=== PATIENT | male | born 1985 | race Caucasian/White ===

== ENCOUNTER 2020-12-21 03:28 | Outpatient (CLI) | payer MEDICAID, SELFPAY ==
[2020-12-21 11:44] LABS: Absolute Basophil Count 0.03 10^3/uL (0.0-0.2); Absolute Eosinophil Count 0.16 10^3/uL (0.0-0.7); Absolute Lymphocyte Count 2.85 10^3/uL (1.2-3.4); Absolute Monocyte Count 0.49 10^3/uL (0.1-0.8); Absolute Neutrophil Count 2.54 10^3/uL (1.2-6.7); Basophils % 0.5; Eosinophils % 2.6; HCT 45.8 % (40.0-50.0); HGB 15.9 g/dL (13.5-17.5); MCH 29.2 pg (27.0-33.0); MCHC 34.7 % (32.0-36.0); MCV 84.2 fL (80-95); MPV 11.5 fL (8.0-11.0); Monocytes % 8.1; Neutrophils % 41.8; Nucleated RBC 0 %; Platelet Count 228 10^3/uL (130-400); RBC 5.44 10^6/uL (4.36-5.78); RDW 12.7 % (11.8-14.1); RDW-SD 39.1 fL; WBC 6.07 10^3/uL (4.4-10.8)
[2020-12-21 12:08] LABS: Hemoglobin A1C 4.6 % (<5.7)
[2020-12-21 13:17] LABS: ALT 37 U/L (16-63); AST 16 U/L (15-37); Albumin 4.7 g/dL (3.4-5.0); Alkaline Phosphatase 90 U/L (46-116); Anion Gap 10.7 mmol/L (3-11); BUN 12 mg/dL (7-18); Bilirubin, Total 0.6 mg/dL (0.2-1.0); CO2 26.3 mmol/L (21.0-32.0); Calcium 9.6 mg/dL (8.5-10.1); Calculated LDL 52 mg/dL (<100); Chloride 104 mmol/L (98-107); Cholesterol 122 mg/dL (<200); Glucose 87 mg/dL (74-106); HDL Cholesterol 36 mg/dL (40-60); Potassium 4.2 mmol/L (3.5-5.1); Sodium 141 mmol/L (136-145); T4 9.4 ug/mL (4.7-13.3); TSH 1.03 uIU/mL (0.36-3.74); Total Protein 7.9 g/dL (6.4-8.2); Triglyceride 170 mg/dL (<150); Vitamin B12 833 pg/mL (193-986)
[2020-12-21 17:18] LABS: T3,Free 3.5 pg/mL (2.8-5.3)
[2020-12-24 04:50] LABS: Vitamin D 25 Total 66.4 ng/mL (30-100)
== END 2020-12-21 03:29 | disposition home or self-care (01) ==
LOC: LBO 03:28
PROVIDERS: PCP Family Medicine; Visit Provider Family Medicine
DX: R53.83 Other fatigue (principal); E55.9 Vitamin D deficiency, unspecified; E53.8 Deficiency of other specified B group vitamins; Z13.220 Encounter for screening for lipoid disorders; Z13.1 Encounter for screening for diabetes mellitus
CPT/HCPCS: 36415; 80053; 80061; 82306; 82607; 83036; 84436; 84443; 84481; 85025

== ENCOUNTER 2020-12-26 15:23 | Emergency (ER) | payer MEDICAID, SELFPAY ==
[2020-12-26 15:58] VITALS: BP 140/80; PULSE 65; RESP 16; TEMP 36.2; O2SAT 99
--- NOTE | 2020-12-26 16:15 | DI.RAD_ITS ---
Exam(s) XR FINGER LT INDEX EXAM: XR FINGER LT INDEX CLINICAL HISTORY: lac, infection, ?fb. TECHNIQUE: 2D digital imaging was performed. COMPARISON: No exams were available for comparison FINDINGS: There is no evidence of fracture or dislocation. No radiopaque foreign body in the indicated area in the 2nd-index finger. No osseous lesions. Bone density normal. IMPRESSION: DATA REPOSITORY: RADIATION DOSE DELIVERED:
--- NOTE | 2020-12-26 16:20 | ED.GENADUL_ITS ---
Discharge Plan Disposition Patient Disposition: HOME Condition: Stable Discharge Details Clinical Impression: Wound infection Primary Care Provider: Cinthia Mtz ED Provider: Kaleb Messer Home Meds and New Rx's Prescriptions: New sulfamethoxazole-trimethoprim [Bactrim DS] 800-160 mg tablet 1 tab PO BID Qty: 20 RF: 0 Continued loratadine [Claritin] 10 mg Tablet 10 mg PO DAILY RF: 0 Discharge Instructions Instructions: Wound Infection (ED) Additional Instructions: Tetanus status has been updated and x-ray is unremarkable. The wound is outside the window for closure. Antibiotic dressing and splint applied. First dose of Bactrim given, take for the next 10 days as directed. Change dressing daily and wear splint to avoid tearing open the laceration. Rest, elevate, warm compresses every 2 hours for 20 minutes. [id number] Tylenol and/or Motrin as directed for discomfort. I recommend following up with your primary care provider in the next 3-5 days for wound reevaluation. Please watch for new or worsening symptoms and return to the ER for any concerns. Medical Decision Making 35-year-old gentleman presents with infected laceration which occurred 2 days ago. Will update tetanus, obtain x-ray to rule out bony abnormality or potential foreign body. Patient is afebrile, no evidence of tenosynovitis, septic joint, lymphangitic streaking. Patient appears well, nontoxic. X-ray is unremarkable for foreign body or bony abnormality. Patient is outside the window for closure of the laceration. Will properly clean, dressed with antibiotic dressing, and apply a finger splint. First dose of Bactrim be given now. Patient given strict discharge and return precautions. Patient has no additional questions or concerns This documentation was generated using [employer] system, please disregard any oddities of phrase or misspellings. Imaging Data Radiologic Study: Attestation: I personally reviewed and interpreted this imaging study as follows: Imaging: X-Ray Radiologist's impression: Exam(s) XR FINGER LT INDEX EXAM: XR FINGER LT INDEX CLINICAL HISTORY: lac, infection, ?fb. TECHNIQUE: 2D digital imaging was performed. COMPARISON: No exams were available for comparison FINDINGS: There is no evidence of fracture or dislocation. No radiopaque foreign body in the indicated area in the 2nd-index finger. No osseous lesions. Bone density normal. HPI General Mode of arrival: ambulatory . Date/Time Provider Initiated Documentation: 12/26/20 15:24 . Limitations to Documentation: no limitations . Information obtained by: patient . HPI Narrative: This is a 35-year-old gentleman, [id number], who denies any significant past medical history presenting for infected laceration to his left index finger. Patient states 2 days ago he sustained an injury with a grinding machine. Initially cleaned it thoroughly but now notices some swelling, redness, pressure, mild discomfort. He is able to bend his finger but with full flexion it feels tight because of the swelling. Distally he reports slightly altered sensation but no true numbness, tingling or weakness. Tetanus status is not up-to-date. He has not taken any medication [id number] for symptomatic control. Reports the pain is mild at rest worse with movement. No other injury. Related Data Home Medications Medication Instructions Recorded Confirmed loratadine [Claritin] 10 mg PO DAILY 12/26/20 12/26/20 sulfamethoxazole-trimethoprim 1 tab PO BID #20 tab 12/26/20 [Bactrim DS] Previous Rx's Medication Instructions Recorded sulfamethoxazole-trimethoprim 1 tab PO BID #20 tab 12/26/20 [Bactrim DS] Allergies Allergy/AdvReac Type Severity Reaction Status Date / Time No Known Allergies Allergy Unverified 12/26/20 16:02 General Stated Complaint: Laceration FEDE: 3 Review of Systems Constitutional Constitutional: Denies fever(s) and Denies weakness Musculoskeletal Musculoskeletal: Denies arthralgias, Denies numbness, Reports stiffness and Denies tingling Integumentary/Breasts Skin/Breast: Reports erythema Neurologic Neurologic: Denies numbness, Denies tingling and Denies weakness [facility] Social History Smoking risk assessment performed?: No Alcohol Intake: never Do you feel safe at home: Yes Do you feel safe in your relationship?: Yes Exam Const General: cooperative, healthy appearing, comfortable and no acute distress Orientation: alert and awake [facility] Head: normal to inspection, normocephalic and atraumatic Eyes Conjunctivae: conjunctivae normal Neck Neck: normal visual inspection, trachea midline and supple Resp Effort & Inspection: normal respiratory effort and able to speak in complete sentences Cardio Rate: regular rate Rhythm: regular rhythm Skin General skin exam: erythema Neuro General: patient alert, patient awake, moves all extremities and no focal motor deficits Cognition: normal cognition Speech: speech normal Motor: muscle tone normal throughout Sensory Exam: no sensory deficits noted Extrem Hand/finger images: 1. There is a 1 cm partially healing laceration without any drainage. There is localized swelling, tenderness, erythema that does extend proximally to around the second MCP joint. This is noncircumferential. Neuro, vascular, tendon intact. Full range of motion. Normal radial pulse and capillary refill. No evidence of septic joint or tenosynovitis Psych Appearance: grossly normal Mental Status: mental status grossly normal Course Vital Signs Vital signs: Vital Signs Temperature 36.2 C L 12/26/20 15:58 Pulse 65 12/26/20 15:58 Respiratory Rate 16 12/26/20 15:58 Blood Pressure 140/80 12/26/20 15:58 Pulse Oximetry 99 12/26/20 15:58 Temperature 36.2 C L 12/26/20 15:58 Temperature Source Tympanic 12/26/20 15:58 Pulse 65 12/26/20 15:58 Respiratory Rate 16 12/26/20 15:58 Respiratory Effort Non-Labored 12/26/20 16:01 Blood Pressure 140/80 12/26/20 15:58 Blood Pressure Position Sitting 12/26/20 15:58 Pulse Oximetry 99 12/26/20 15:58 Oxygen Delivery Method Room Air 12/26/20 15:58 Oxygen Flow Rate 0 12/26/20 15:58 Pain Level 0 12/26/20 15:58
[2020-12-26] MEDS: Sulfameth/Trimeth DS TAB 1 TAB PO (17:15)
--- NOTE | 2020-12-26 17:18 | NUR.NOTE ---
1715 LACERATION CLEANED & BACITRACIN APPLIED, TDAP & ORAL ABX GIVEN DOCUMENTED. SPLINT APPLIED, +CSMT TO FINGER AFTER SPLINT APPLICATION
--- NOTE | 2020-12-26 17:40 | DI.VRAD_ITS ---
PROCEDURE INFORMATION: Exam: XR Left Finger(s) Exam date and time: 12/26/2020 4:21 PM Age: 35 years old Clinical indication: Pain; Finger(s); Left; Patient HX: Lac, infection TECHNIQUE: Imaging protocol: XR Left fingers. Views: Minimum 2 views. COMPARISON: No relevant prior studies available. FINDINGS: Bones/joints: Normal. Soft tissues: Soft tissue trauma noted. No radiopaque foreign bodies. IMPRESSION: No acute osseous injury Dictated and Authenticated by: Jaswinder Hammonds MD. Ordering:MALLY Manuel MD
== END 2020-12-26 17:32 | disposition home or self-care (01) ==
PROVIDERS: Emergency Provider Physician Assistant; PCP Family Medicine
DX: S61.213A Laceration without foreign body of left middle finger without damage to nail, initial encounter (principal); L08.9 Local infection of the skin and subcutaneous tissue, unspecified; W31.89XA Contact with other specified machinery, initial encounter
CPT/HCPCS: 29130; 90471; 99284; 73140; 99283

== ENCOUNTER 2023-08-14 17:40 | Emergency (ER) | payer OTHER, SELFPAY ==
[2023-08-14 17:46] VITALS: BP 157/85; PULSE 87; RESP 18; TEMP 36.5; O2SAT 97
--- NOTE | 2023-08-14 18:00 | DI.RAD_ITS ---
Exam(s) XR KNEE RT 3V AP,LAT,CEZAR EXAM: XR KNEE RT 3V AP,LAT,CEZAR CLINICAL HISTORY: axe injury to lateral knee. TECHNIQUE: 2D digital imaging was performed. COMPARISON: No exams were available for comparison FINDINGS: No evidence of fracture prominent joint effusion. Bone density normal. No radiopaque foreign body. No degenerative changes in the knee joint. Incidentally noted is a benign-appearing lung to truly orientated bubbly lesion which is nonexpansile in the distal medial diaphysis of the femur. This is probably remnant of fibrous cortical defect-no nossifying fibroma. IMPRESSION: No acute osseous findings. Incidental benign bone lesion in distal femur as above. DATA REPOSITORY: RADIATION DOSE DELIVERED:
[2023-08-14] MEDS: Lidocaine 1% Multi-Dose W/EPI 1/100,000 50 ML VIAL (18:12)
--- NOTE | 2023-08-14 18:39 | ED.GENADUL_ITS ---
Discharge Plan Disposition Patient Disposition: Home Condition: Stable Discharge Details Clinical Impression: Laceration of leg Primary Care Provider: Cinthia Mtz ED Provider: Megha Hidalgo Home Meds and New Rx's Prescriptions: Continued loratadine [Claritin] 10 mg Tablet 10 mg PO DAILY Discharge Instructions Instructions: Laceration (ED) Additional Instructions: Keep wound clean and dry try not to kneel or bend for the next several days keep covered when wearing pants or outside allow to air dry as much as possible return with spreading redness, fever, worsening pain suture removal in 10-12 days Referrals: Cinthia Mtz [Primary Care Provider] - Discharge Data Discharge Date/Time-TO BE ENTERED AT DEPARTURE: 08/14/23 18:50 HPI General Date/Time Provider Initiated Documentation: 08/14/23 17:55 . HPI Narrative: This 38-year-old male presents with laceration to right lateral knee. Patient states that he was using an ax to chop somewhat and accidentally brace his knee. He was able to ambulate after the event. Denies any history of coagulopathy. Tetanus reportedly up-to-date. Related Data Home Medications Medication Instructions Recorded Confirmed loratadine 10 mg tablet (Claritin) 10 mg PO DAILY 12/26/20 08/14/23 Allergies Allergy/AdvReac Type Severity Reaction Status Date / Time No Known Allergies Allergy Unverified 12/26/20 16:02 General Stated Complaint: Laceration FEDE: 3 Exam Narrative Exam Narrative: Patient with laceration to right lateral knee, approximately an inch long, no evidence of involvement of the capsule, relatively superficial without extension past the adipose tissue on probing, range of motion is intact, neurovascularly intact, no tenderness to calf or femur Course Vital Signs Vital signs: Vital Signs Temperature 36.5 C 08/14/23 17:46 Pulse 87 08/14/23 17:46 Respiratory Rate 18 08/14/23 17:46 Blood Pressure 157/85 H 08/14/23 17:46 Pulse Oximetry 97 08/14/23 17:46 Temperature 36.5 C 08/14/23 17:46 Temperature Source Temporal Artery Scan 08/14/23 17:46 Pulse 87 08/14/23 17:46 Respiratory Rate 18 08/14/23 17:46 Respiratory Effort Normal, Non-Labored 08/14/23 18:22 Blood Pressure 157/85 H 08/14/23 17:46 Pulse Oximetry 97 08/14/23 17:46 Pain Level 0 08/14/23 18:19 Procedures Laceration Laceration 1: Site: lower extremity Side (If applicable): right Size (cm): 2 Description: linear Depth: simple, single layer Pre-repair: wound explored Size (cm): 4-0 Number of sutures: 3 Technique: simple, interrupted, horizontal mattress and other Medical Decision Making This 38-year-old male presents with report knee injury just prior to arrival with an ax and an accidental abrasion. Tetanus is up-to-date, received 2 years prior to arrival. Joint capsule is intact without evidence of penetration and patient is otherwise neurovascularly intact, this is a superficial laceration I will place 3 sutures, please see my documentation. Patient will need sutures removed in 10 to 12 days. Quality:SDOH Health Related Social Needs: Health related social needs risk of homeless PFSH All Active Problems (Updated 08/14/23 @ 18:40 by JACOB Felton) Laceration of leg (Acute) Wound infection (Acute) Social History Smoking/Tobacco Use Status: Former Tobacco Use Smoking risk assessment performed?: Yes Alcohol Intake: never Drug use: Occasionally Substance use type: marijuana Housing: house Do you feel safe at home: Yes Do you feel safe in your relationship?: Yes PAWSS Have you Been Recently Intoxicated or Drunk Within the Last 30 days?: No Have you Ever Experienced Previous Episodes of Alcohol Withdrawal?: No Have you ever Experienced Withdrawal Seizures?: No Have you ever Experienced Delirium Tremens(DT)s?: No Have you ever undergone Alcohol Rehabilitation Treatment (i.e, inpt ot outpatient treatment programs)?: No Have you ever Experienced Blackouts?: No Have you ever Combined Alcohol with other Downers within the last 90 days?: No Have you ever Combined Alcohol with any other Substance of Abuse during the last 90 days?: No Positive Blood Alcohol level on Presentation? [PCS.BAL]: No Evidence of Increased Autonomic Activity (i.e. HR>120, tremor, sweating, agitation, nausea)?: No Result: 0
== END 2023-08-14 18:50 | disposition home or self-care (01) ==
PROVIDERS: Emergency Provider Physician Assistant; PCP Family Medicine
DX: S81.011A Laceration without foreign body, right knee, initial encounter (principal); Z87.891 Personal history of nicotine dependence; W27.0XXA Contact with workbench tool, initial encounter; Y93.89 Activity, other specified
CPT/HCPCS: 12001; 73562; 99283; J2004